=== PATIENT | male | born 1955 | race Caucasian/White ===

== ENCOUNTER 2020-10-14 10:01 | Inpatient (IN) ==
[2020-10-14 10:30] LABS: Hematocrit 46.8 % (42.0-52.0); Hemoglobin 15.9 gm/dL (13.5-18.0); Mean Cell Volume 99.2 fl (78-100); Mean Corpuscular Hemoglobin 33.7 pg (27-31); Mean Platelet Volume 8.5 fl (8-11.3); Platelet Count 278 K/mm3 (150-450); Red Blood Count 4.72 M/mm3 (4.7-6.0); Red Cell Distribution Width 12.9 % (11.5-14.0)
[2020-10-14 10:35] LABS: Total Cells Counted 100
[2020-10-14] MEDS ORDERED: NORMAL SALINE 1,000 ML IV ONE ×2 (10:39→11:45)
[2020-10-14] MEDS ORDERED: MORPHINE SULFATE 4 MG/ML SYRG IV ONE (10:39)
[2020-10-14] MEDS ORDERED: ONDANSETRON HCL/PF 2 MG/ML VIAL IV ONE (10:39)
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
[2020-10-14 10:56] LABS: Albumin * 3.9 gm/dl (3.4-5.0); Anion Gap 15.4 mmol/L (6.8-13.8); BUN/Creatinine Ratio 15.6 (9.0-21.6); Bilirubin, Total 0.6 mg/dL (0.0-1.1); Ca. Corrected For Albumin 9.1 mg/dL (8.4-10.2); Calcium * 9.3 mg/dL (7.9-10.9); Carbon Dioxide 25.8 mmol/L (24-32.6); Potassium 4.2 mmol/L (3.4-4.6); Total Protein 8.3 gm/dL (6.2-8.2)
[2020-10-14 11:17] LABS: Urine Bilirubin Negative (NEGATIVE); Urine Blood Negative /ul (NEGATIVE); Urine Ketone 50 mg/dL (NEGATIVE); Urine Nitrite Negative (NEGATIVE); Urine Protein 30 mg/dL (NEGATIVE); Urine Urobilinogen Normal (NORMAL); Urine pH 6.5 pH (5.0-7.0)
[2020-10-14 11:20] LABS: Atypical (Reactive) Lymph 2 % (0-2); Band 5 % (0-2.0); Eosinophil 1 % (0-3); Lymphocyte 7 % (20-51); Monocyte 2 % (0-9); Neutrophil 83 % (42-75); Neutrophil # 12.5 K/mm3 (1.3-6.0)
[2020-10-14 11:21] LABS: Platelet Estimate Normal (NORMAL); RBC Morphology Normal (NORMAL)
[2020-10-14 11:26] LABS: Urine Appearance Slightly Cloudy (CLEAR); Urine Bacteria TRACE; Urine Color Yellow; Urine Hyaline Cast TRACE /LPF; Urine Mucus Moderate - 2+; Urine RBC TRACE /hpf (0-5); Urine WBC 0-5 /hpf (0-5)
[2020-10-14] MEDS ORDERED: HYDROmorphone HCL 1 MG/ML DISP.SYRIN IV ONE (11:47)
[2020-10-14] MEDS ORDERED: ONDANSETRON HCL/PF 2 MG/ML VIAL IV PRN (12:20)
[2020-10-14] MEDS ORDERED: HYDROmorphone HCL 1 MG/ML DISP.SYRIN IV PRN (12:21)
[2020-10-14] MEDS ORDERED: BENZOCAINE/MENTHOL 16 EACH BOX MM PRN (15:19)
[2020-10-14] MEDS: HYDROmorphone HCL 2 MG/ML VIAL IV PRN ×3 (15:51→23:59)
[2020-10-14] MEDS ORDERED: LORazepam 2 MG/ML DISP.SYRIN IV PRN ×2 (16:44)
[2020-10-14] MEDS: NORMAL SALINE 1,000 ML IV PRN (17:01)
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
[2020-10-14] MEDS: ENOXAPARIN SODIUM 40 MG/0.4 ML SYRG SC SCH (17:21)
[2020-10-14] MEDS: THIAMINE HCL 100 MG TABLET PO SCH (17:21)
[2020-10-14] MEDS: BUDESONIDE 0.5 MG/2 ML VIAL.NEB IH SCH (18:01)
[2020-10-14] MEDS: ALBUTEROL SULFATE 2.5 MG/0.5 ML VIAL.NEB IH PRN (18:01)
[2020-10-14] MEDS ORDERED: LABETALOL HCL 5 MG/ML VIAL IV ONE (19:35)
[2020-10-14] MEDS: cloNIDine 0.1 MG PATCH.TDWK TD SCH (19:50)
[2020-10-15] MEDS: NORMAL SALINE 1,000 ML IV PRN ×3 (01:18→16:38)
[2020-10-15] MEDS: HYDROmorphone HCL 2 MG/ML VIAL IV PRN ×4 (04:07→20:20)
[2020-10-15] MEDS: ALBUTEROL SULFATE 2.5 MG/0.5 ML VIAL.NEB IH PRN ×2 (06:00→17:54)
[2020-10-15] MEDS: BUDESONIDE 0.5 MG/2 ML VIAL.NEB IH SCH ×3 (06:01→18:44)
[2020-10-15] MEDS: cloNIDine 0.1 MG PATCH.TDWK TD SCH (06:12)
[2020-10-15 06:24] LABS: Hemoglobin 14.2 gm/dL (13.5-18.0); Mean Cell Volume 99.8 fl (78-100); Mean Corpuscular Hemoglobin 32.9 pg (27-31); Mean Platelet Volume 8.5 fl (8-11.3); Neutrophil # 13.3 K/mm3 (1.3-6.0); Neutrophil % 81.7 % (42-75.0); Platelet Count 253 K/mm3 (150-450); Red Blood Count 4.31 M/mm3 (4.7-6.0); Red Cell Distribution Width 12.9 % (11.5-14.0); White Blood Count 16.3 K/mm3 (4.0-10.5)
[2020-10-15 06:38] LABS: Albumin * 3.4 gm/dl (3.4-5.0); Anion Gap 11.8 mmol/L (6.8-13.8); BUN/Creatinine Ratio 11.7 (9.0-21.6); Bilirubin, Total 0.7 mg/dL (0.0-1.1); Ca. Corrected For Albumin 8.5 mg/dL (8.4-10.2); Calcium * 8.3 mg/dL (7.9-10.9); Carbon Dioxide 26.3 mmol/L (24-32.6); Potassium 4.1 mmol/L (3.4-4.6); Total Protein 7.3 gm/dL (6.2-8.2)
[2020-10-15] MEDS ORDERED: chlorproMAZINE HCL 10 MG in NORMAL SALINE 50 ML IV PRN (07:09)
--- NOTE | 2020-10-15 07:18 | PN ---
Subjective - Date and Time Seen Date: 10/15/20 Time: 06:20 Subjective Narrative: This patient is a 65-year-old male who came to our Emergency Room yesterday with severe abdominal pain. The pain is upper abdomen. Chest tightness has improved. It started about 5 AM yesterday after using the restroom and lying back down in bed. He says the pain is still constant, but may be a little better than yesterday. He was sweaty and nauseated in the emergency room. He vomited 3 times, but not since admission to the medical surgical floor. He is still nauseated. He just developed hiccoughs which he also had yesterday. His bp and shakiness are better. Workup in the ER was negative for cardiac ischemia. Bloodwork this morning showed a slightly more elevated wbc count. Lipase has substantially improved. CT of the abdomen was consistent with uncomplicated pancreatitis and there were no gallstones or cholecystitis. He had pancreatitis in the past one time, perhaps several years ago. He told the ER doctor he did not drink alcohol. He told the ER nurse he drank a fifth of whiskey per week. He told the floor nurse he drank 4 oz of vodka daily. Floor nurse said his last drink was 3 days ago. Alcohol abuse could possibly explain the pancreatitis, the shakiness and the elevated bp. there is also a history of chronic intractable low back pain chronically on tramadol. Objective - Review of Systems Generalized/Overall Review: Reports: No Symptoms Reported EENTM: Reports: No Symptoms Reported Respiratory: Reports: No Symptoms Reported Cardiac: Reports: No Symptoms Reported Abdominal: Reports: Nausea, Abdominal Pain Genitourinary Symptoms: Reports: No Symptoms Reported Musculoskeletal Complaints: Reports: Back Pain Neurological: Reports: No Symptoms Reported Skin: Reports: No Symptoms Reported Endocrine: Reports: No Symptoms Reported Misc: All systems neg except as marked - Vitals Vitals: Last Vital Signs Temp 36.7 C 10/15/20 06:33 Pulse 95 10/15/20 06:33 Resp 16 10/15/20 06:33 BP 173/88 H 10/15/20 06:33 Pulse Ox 94 10/15/20 06:33 - Abnormal Lab Findings Abnormal Lab Findings: Abnormal Lab Results 10/14/20 10/14/20 10/14/20 Range/Units 10:25 10:25 10:58 WBC 15.0 H (4.0-10.5) K/mm3 RBC (4.7-6.0) M/mm3 MCH 33.7 H (27-31) pg Immature Gran % (Auto) (0.001-0.429) % Immature Gran # (Auto) (0.000-0.0310) K/mm3 Neutrophils % (42-75.0) % Neutrophils % (Manual) 83 H (42-75) % Band Neuts % (Manual) 5 H (0-2.0) % Lymphocytes % (20-51) % Lymphocytes % (Manual) 7 L (20-51) % Neutrophils # (1.3-6.0) K/mm3 Neutrophils # (Manual) 12.5 H (1.3-6.0) K/mm3 Lymphocytes # (Manual) 1.1 L (1.5-3.5) k/mm3 Monocytes # (0.0-1.0) k/mm3 Anion Gap 15.4 H (6.8-13.8) mmol/L Random Glucose 207 H (70-110) mg/dL Total Protein 8.3 H (6.2-8.2) gm/dL Amylase 1672 H (25-115) U/L Lipase 10415 H (73-393) U/L Urine Protein 30 H (NEGATIVE) mg/dL Urine Glucose (UA) 250 H (NEGATIVE) mg/dL Urine Mucus Moderate - 2+ H (NONE) 10/15/20 10/15/20 Range/Units 06:10 06:10 WBC 16.3 H (4.0-10.5) K/mm3 RBC 4.31 L (4.7-6.0) M/mm3 MCH 32.9 H (27-31) pg Immature Gran % (Auto) 0.50 H (0.001-0.429) % Immature Gran # (Auto) 0.08 H (0.000-0.0310) K/mm3 Neutrophils % 81.7 H (42-75.0) % Neutrophils % (Manual) (42-75) % Band Neuts % (Manual) (0-2.0) % Lymphocytes % 9.9 L (20-51) % Lymphocytes % (Manual) (20-51) % Neutrophils # 13.3 H (1.3-6.0) K/mm3 Neutrophils # (Manual) (1.3-6.0) K/mm3 Lymphocytes # (Manual) (1.5-3.5) k/mm3 Monocytes # 1.2 H (0.0-1.0) k/mm3 Anion Gap (6.8-13.8) mmol/L Random Glucose (70-110) mg/dL Total Protein (6.2-8.2) gm/dL Amylase (25-115) U/L Lipase 2576 H (73-393) U/L Urine Protein (NEGATIVE) mg/dL Urine Glucose (UA) (NEGATIVE) mg/dL Urine Mucus (NONE) - Exam Constitutional: Present: Alert, Oriented x3, Cooperative, Well developed, No distress ENT Exam: Present: normal ENT inspection, hard of hearing Neck: Absent: lymphadenopathy (R), lymphadenopathy (L), thyromegaly Breasts: Present: Other - male Respiratory: Present: lungs clear, no respiratory distress Cardiovascular/Chest: Present: regular rate, rhythm, no gallop, no JVD, no murmur Abdomen: Present: Normal bowel sounds, soft, no rebound tenderness, no hepatospenomegaly, no masses, tender - diffuse /Rectal: Present: Exam deferred Extremity: Present: normal capillary refill, lower extremity edema Skin Exam: Present: normal color, warm/dry, no cyanosis Lymphatic: Present: no adenopathy Neurologic: Present: normal mood/affect Appearance: Present: appropriate appearance, appropriate insight, neat, no memory impairment Eye contact: Present: cooperative, good eye contact, normal speech Thoughts: Present: normal thought pattern Assessment/Plan - Problems/Diagnosis (1) Pancreatitis Problem: Acute Qualifiers: Chronicity: acute Acute pancreatitis complication: unspecified Narrative: improved. npo. iv fluids. monitor. (2) Elevated BP without diagnosis of hypertension Problem: Acute Narrative: improved. monitor. (3) Shakiness Problem: Acute Narrative: improved. monitor. (4) Alcohol use Problem: Chronic (5) Moderate persistent chronic asthma without complication Problem: Chronic (6) Former smoker Problem: Chronic (7) Chronic low back pain Problem: Chronic Qualifiers: Back pain laterality: midline Sciatica presence: without sciatica Qualified Code(s): M54.5 - Low back pain; G89.29 - Other chronic pain (8) Chronically on opiate therapy Problem: Chronic
[2020-10-15] MEDS: FOLIC ACID 1 MG TABLET PO SCH (08:41)
[2020-10-15] MEDS: THIAMINE HCL 100 MG TABLET PO SCH (08:41)
[2020-10-15] MEDS: LORazepam 2 MG/ML DISP.SYRIN IV PRN ×3 (08:51→22:16)
[2020-10-15] MEDS: ENOXAPARIN SODIUM 40 MG/0.4 ML SYRG SC SCH (16:36)
[2020-10-16] MEDS: LORazepam 2 MG/ML DISP.SYRIN IV PRN ×2 (00:29→08:33)
[2020-10-16] MEDS: NORMAL SALINE 1,000 ML IV PRN ×2 (00:32→07:08)
[2020-10-16] MEDS: BUDESONIDE 0.5 MG/2 ML VIAL.NEB IH SCH ×2 (06:04→18:51)
[2020-10-16] MEDS: ALBUTEROL SULFATE 2.5 MG/0.5 ML VIAL.NEB IH PRN ×2 (06:05→18:50)
[2020-10-16 06:32] LABS: Hematocrit 42.2 % (42.0-52.0); Hemoglobin 14.1 gm/dL (13.5-18.0); Mean Cell Volume 100.2 fl (78-100); Mean Corpuscular Hemoglobin 33.5 pg (27-31); Mean Corpuscular Hgb Conc 33.4 g/dl (32-36); Mean Platelet Volume 8.7 fl (8-11.3); Platelet Count 237 K/mm3 (150-450); Red Blood Count 4.21 M/mm3 (4.7-6.0); Red Cell Distribution Width 12.9 % (11.5-14.0)
[2020-10-16 06:40] LABS: Anion Gap 14.7 mmol/L (6.8-13.8); BUN/Creatinine Ratio 12.5 (9.0-21.6); Calcium * 8.3 mg/dL (7.9-10.9); Carbon Dioxide 23.1 mmol/L (24-32.6); Estimated Creat Clear 102.8; Potassium 3.8 mmol/L (3.4-4.6)
[2020-10-16 06:42] LABS: Total Cells Counted 100
--- NOTE | 2020-10-16 06:49 | PN ---
Subjective - Date and Time Seen Date: 10/16/20 Time: 06:15 Subjective Narrative: This patient is a 65-year-old male who came to our Emergency Room with severe abdominal pain. This morning the pain is almost gone. The chest tightness is gone. Labs have been improving, but today's are still pending. No more nausea. He hasn't been up and walking and has been NPO. He had pancreatitis in the past one time, perhaps several years ago. there is also a history of chronic intractable low back pain chronically on tramadol. unless he worsens, no additional labs. start low fat diet, walk in halls, probably home tomorrow. Objective - Review of Systems Generalized/Overall Review: Reports: No Symptoms Reported EENTM: Reports: No Symptoms Reported Respiratory: Reports: No Symptoms Reported Cardiac: Reports: No Symptoms Reported Abdominal: Reports: Abdominal Pain - mild Genitourinary Symptoms: Reports: No Symptoms Reported Musculoskeletal Complaints: Reports: Back Pain Neurological: Reports: No Symptoms Reported Skin: Reports: No Symptoms Reported Endocrine: Reports: No Symptoms Reported Misc: All systems neg except as marked - Vitals Vitals: Last Vital Signs Temp 36.8 C 10/16/20 01:39 Pulse 85 10/16/20 06:14 Resp 20 10/16/20 06:14 BP 167/85 H 10/16/20 01:39 Pulse Ox 92 L 10/16/20 06:04 - Abnormal Lab Findings Abnormal Lab Findings: Abnormal Lab Results 10/15/20 10/16/20 10/16/20 Range/Units 06:10 06:15 06:15 WBC 16.0 H (4.0-10.5) K/mm3 RBC 4.21 L (4.7-6.0) M/mm3 MCV 100.2 H (78-100) fl MCH 33.5 H (27-31) pg Immature Gran % (Auto) 0.70 H (0.001-0.429) % Immature Gran # (Auto) 0.11 H (0.000-0.0310) K/mm3 Neutrophils % 76.1 H (42-75.0) % Lymphocytes % 12.8 L (20-51) % Monocytes % 9.8 H (0.0-9) % Neutrophils # 12.2 H (1.3-6.0) K/mm3 Monocytes # 1.6 H (0.0-1.0) k/mm3 Carbon Dioxide 23.1 L (24-32.6) mmol/L Anion Gap 14.7 H (6.8-13.8) mmol/L Lipase 2576 H (73-393) U/L - Exam Constitutional: Present: Alert, Oriented x3, Cooperative, No distress ENT Exam: Present: normal ENT inspection, hard of hearing Neck: Absent: lymphadenopathy (R), lymphadenopathy (L), thyromegaly Breasts: Present: Other - male Respiratory: Present: lungs clear, no respiratory distress Cardiovascular/Chest: Present: normal peripheral pulses, regular rate, rhythm, no gallop, no JVD, no murmur Abdomen: Present: Normal bowel sounds, soft, nondistended, no hepatospenomegaly, no masses, tender - minimally diffusely tender /Rectal: Present: Exam deferred Extremity: Present: normal capillary refill Skin Exam: Present: normal color, warm/dry Lymphatic: Present: no adenopathy Neurologic: Present: oriented x 3 Appearance: Present: appropriate appearance, appropriate insight, neat Eye contact: Present: cooperative, good eye contact, normal speech Thoughts: Present: normal thought pattern Assessment/Plan - Problems/Diagnosis (1) Pancreatitis Problem: Acute Qualifiers: Chronicity: acute Acute pancreatitis complication: unspecified Narrative: improved. decrease iv fluid rate. low fat food. walk in halls. if does ok, home tomorrow. (2) Elevated BP without diagnosis of hypertension Problem: Acute Narrative: continue Catapress topical and monitor. (3) Shakiness Problem: Resolved (4) Alcohol use Problem: Chronic (5) Moderate persistent chronic asthma without complication Problem: Chronic (6) Former smoker Problem: Chronic (7) Chronic low back pain Problem: Chronic Qualifiers: Back pain laterality: midline Sciatica presence: without sciatica Qualified Code(s): M54.5 - Low back pain; G89.29 - Other chronic pain (8) Chronically on opiate therapy Problem: Chronic
[2020-10-16 07:32] LABS: Atypical (Reactive) Lymph 3 % (0-2); Lymphocyte 11 % (20-51); Monocyte 12 % (0-9); Neutrophil 74 % (42-75); Neutrophil # 11.8 K/mm3 (1.3-6.0); Platelet Estimate Normal (NORMAL)
[2020-10-16 07:33] LABS: Hypochromia Trace; Microcytosis 1+; Polychromasia Trace
[2020-10-16] MEDS: FOLIC ACID 1 MG TABLET PO SCH (08:22)
[2020-10-16] MEDS: THIAMINE HCL 100 MG TABLET PO SCH (08:22)
[2020-10-16] MEDS ORDERED: cloNIDine 0.1 MG PATCH.TDWK TD SCH (11:15)
--- NOTE | 2020-10-16 11:50 | PN ---
Subjective - Date and Time Seen Date: 10/16/20 Time: 11:47 Objective - Vitals Vitals: Last Vital Signs Temp 36.3 C 10/16/20 10:36 Pulse 87 10/16/20 10:36 Resp 20 10/16/20 10:36 BP 178/94 H 10/16/20 10:36 Pulse Ox 93 10/16/20 10:36 - Abnormal Lab Findings Abnormal Lab Findings: Abnormal Lab Results 10/16/20 10/16/20 Range/Units 06:15 06:15 WBC 16.0 H (4.0-10.5) K/mm3 RBC 4.21 L (4.7-6.0) M/mm3 MCV 100.2 H (78-100) fl MCH 33.5 H (27-31) pg Lymphocytes % (Manual) 11 L (20-51) % Monocytes % (Manual) 12 H (0-9) % Neutrophils # (Manual) 11.8 H (1.3-6.0) K/mm3 Monocytes # (Manual) 1.9 H (0.0-1.0) k/mm3 Atypic/Reactive Lymphs 3 H (0-2) % Carbon Dioxide 23.1 L (24-32.6) mmol/L Anion Gap 14.7 H (6.8-13.8) mmol/L Assessment/Plan - Problems/Diagnosis (1) Pancreatitis Problem: Acute Qualifiers: Chronicity: acute Acute pancreatitis complication: unspecified (2) Elevated BP without diagnosis of hypertension Problem: Acute (3) Shakiness Problem: Resolved (4) Alcohol use Problem: Chronic (5) Moderate persistent chronic asthma without complication Problem: Chronic (6) Former smoker Problem: Chronic (7) Chronic low back pain Problem: Chronic Qualifiers: Back pain laterality: midline Sciatica presence: without sciatica Qualified Code(s): M54.5 - Low back pain; G89.29 - Other chronic pain (8) Chronically on opiate therapy Problem: Chronic (9) Alcohol dependency Problem: Chronic Narrative: how much of a problem this is remains uncertain because there was variable history from him around the time of admission. not verified one way or another by another person who knows him (10) Alcohol withdrawal delirium Problem: Suspected Narrative: see nurses notes. confusion, elevated pulse and bp. being treated with monitoring, fluids and prn ativan (11) Medication adverse effect Problem: Suspected Narrative: dilaudid for pain. his confusion (see nurses notes) earlier in admission may be in part or completely due to the pain medication. it is now a non issue because he no longer needs the pain medication.
[2020-10-16] MEDS: ENOXAPARIN SODIUM 40 MG/0.4 ML SYRG SC SCH (16:16)
[2020-10-17] MEDS: NORMAL SALINE 1,000 ML IV PRN (03:29)
[2020-10-17] MEDS: ALBUTEROL SULFATE 2.5 MG/0.5 ML VIAL.NEB IH PRN (06:05)
[2020-10-17] MEDS: BUDESONIDE 0.5 MG/2 ML VIAL.NEB IH SCH (06:05)
--- NOTE | 2020-10-17 07:09 | DS ---
(1) Pancreatitis Diagnosis(s): improving. advise no alcohol in any amount. can go home today with office followup. Problem: Acute Qualifiers: Chronicity: acute Acute pancreatitis complication: unspecified (2) Benign essential hypertension Diagnosis(s): it appears that at least for the present he has persistent hypertension. better on catapress. will continue that as an outpatient. Problem: Chronic (3) Elevated BP without diagnosis of hypertension Problem: Resolved (4) Shakiness Problem: Resolved (5) Alcohol use Problem: Chronic (6) Moderate persistent chronic asthma without complication Problem: Chronic (7) Former smoker Problem: Chronic (8) Chronic low back pain Problem: Chronic Qualifiers: Back pain laterality: midline Sciatica presence: without sciatica Qualified Code(s): M54.5 - Low back pain; G89.29 - Other chronic pain (9) Chronically on opiate therapy Diagnosis(s): chronic intractable low back pain. will reassess the need for his chronic tramadol use at his followup office visit. Problem: Chronic (10) Alcohol dependency Problem: Chronic (11) Alcohol withdrawal delirium Problem: Resolved (12) Medication adverse effect Diagnosis(s): dilaudid. it could have just as easily been acute alcohol withdrawal and have nothing to do with the dilaudid. Problem: Resolved Date of Discharge:: 10/17/20 Hospital Course: treated conservatively with NPO, IV fluids and medicine for pain and nausea. he is able to get to the bathroom without difficulty. he is eating. he is not nauseated. his pain is minimal. his bp is better on catapress. early in his stay he developed tachycardia and confusion which may have been due to alcohol withdrawal. he was also tremulous. that has all resolved. his lipase was almost normal yesterday. he is much better and may go home with outpatient followup. Procedures Performed: none Results and Findings: Lab Pending Results 10/14/20 10:20: Troponin I Less than 0.017 10/14/20 10:25: WBC 15.0 H, RBC 4.72, Hgb 15.9, Hct 46.8, MCV 99.2, MCH 33.7 H, MCHC 34.0, RDW 12.9, Plt Count 278, MPV 8.5, Neutrophils % (Manual) 83 H, Band Neuts % (Manual) 5 H, Lymphocytes % (Manual) 7 L, Monocytes % (Manual) 2, Eosinophils % (Manual) 1, Neutrophils # (Manual) 12.5 H, Lymphocytes # (Manual) 1.1 L, Monocytes # (Manual) 0.3, Eosinophils # (Manual) 0.2, Atypic/Reactive Lymphs 2, Platelet Estimate Normal, RBC Morphology Normal 10/14/20 10:25: Sodium 136, Plasma Sodium 138, Potassium 4.2, Chloride 99, Carbon Dioxide 25.8, Anion Gap 15.4 H, BUN 15, Creatinine 0.96, Est GFR (Non-Af Amer) 83, BUN/Creatinine Ratio 15.6, Random Glucose 207 H, Calcium 9.3, Calcium Adj for Albumin 9.1, Total Bilirubin 0.6, AST 41, ALT 66, Alkaline Phosphatase 69, Total Protein 8.3 H, Albumin 3.9, Amylase 1672 H, Lipase 21688 H 10/14/20 10:58: Urine Color Yellow, Urine Appearance Slightly cloudy, Urine pH 6.5, Ur Specific Warren 1.020, Urine Protein 30 H, Urine Glucose (UA) 250 H, Urine Ketones 50, Urine Blood Negative, Urine Nitrate Negative, Urine Bilirubin Negative, Urine Urobilinogen Normal, Ur Leukocyte Esterase Negative, Urine RBC Trace, Urine WBC 0-5, Ur Epithelial Cells Trace, Urine Bacteria Trace, Hyaline Casts Trace, Urine Mucus Moderate - 2+ H, Urine Culture Comments No culture indicated 10/14/20 12:28: SARS-CoV-2 (PCR) Not detected 10/15/20 06:10: Sodium 134, Plasma Sodium 134, Potassium 4.1, Chloride 100, Carbon Dioxide 26.3, Anion Gap 11.8, BUN 9, Creatinine 0.77, Est GFR (Non-Af Amer) 107 D, BUN/Creatinine Ratio 11.7, Random Glucose 104 D, Calcium 8.3, Calcium Adj for Albumin 8.5, Total Bilirubin 0.7, AST 30, ALT 51, Alkaline Phosp hatase 54, Total Protein 7.3, Albumin 3.4, Lipase 2576 H 10/15/20 06:10: WBC 16.3 H, RBC 4.31 L, Hgb 14.2, Hct 43.0, MCV 99.8, MCH 32.9 H, MCHC 33.0, RDW 12.9, Plt Count 253, MPV 8.5, Immature Gran % (Auto) 0.50 H, Immature Gran # (Auto) 0.08 H, Neutrophils % 81.7 H, Lymphocytes % 9.9 L, Monocytes % 7.5, Eosinophils % 0.2, Basophils % 0.2, Nucleated RBC % 0.0, Neutrophils # 13.3 H, Lymphocytes # 1.62, Monocytes # 1.2 H, Eosinophils # 0.0, Absolute Basophils 0.0 10/16/20 06:15: WBC 16.0 H, RBC 4.21 L, Hgb 14.1, Hct 42.2, MCV 100.2 H, MCH 33.5 H, MCHC 33.4, RDW 12.9, Plt Count 237, MPV 8.7, Immature Gran % (Auto) Audio/Video Technician, Immature Gran # (Auto) Audio/Video Technician, Neutrophils % Audio/Video Technician, Neutrophils % (Manual) 74, Lymphocytes % Audio/Video Technician, Lymphocytes % (Manual) 11 L, Monocytes % Audio/Video Technician, Monocytes % (Manual) 12 H, Eosinophils % Audio/Video Technician, Basophils % Audio/Video Technician, Nucleated RBC % Audio/Video Technician, Neutrophils # Audio/Video Technician, Neutrophils # (Manual) 11.8 H, Lymphocytes # Audio/Video Technician, Lymphocytes # (Manual) 1.8, Monocytes # Audio/Video Technician, Monocytes # (Manual) 1.9 H, Eosinophils # Audio/Video Technician, Absolute Basophils Audio/Video Technician, Atypic/Reactive Lymphs 3 H, Platelet Estimate Normal, Polychromasia Trace, Hypochromasia Trace, Microcytosis 1+ 10/16/20 06:15: Sodium 135, Plasma Sodium 135, Potassium 3.8, Chloride 101, Carbon Dioxide 23.1 L, Anion Gap 14.7 H, BUN 9, Creatinine 0.72, Est GFR (Non-Af Amer) 116, BUN/Creatinine Ratio 12.5, Random Glucose 101, Calcium 8.3, Lipase 360 Discharge Location: Home Disposition: Home self-care Condition: Good Discharge Activity: Activity as tolerated Discharge Diet: Low fat/chol - strictly avoid alcohol of any type in any amount ever. Referrals: Fazal Ceballos MD [Primary Care Provider] - Additional Patient Instructions (free text): call for problems or questions any amount of alcohol increases the chance for another episode of pancreatitis. office appt with Dr. Jeronimo in a week or so. Complete Home Medications List: Complete Home Medication List: acetaminophen 325 mg tablet 325 mg PO Q6H PRN 11/10/18 Nebulizer and Supplies 0 .ROUTE .MEDSUPPLY #1 ea 12/06/19 albuterol sulfate 2.5 mg IH QID PRN #120 ml 09/30/20 budesonide 0.5 mg/2 mL suspension for nebulization 0.5 mg IH BID #60 ml 09/30/20 bupropion HCl 150 mg tablet,12 hr sustained-release 150 mg PO BID #60 ea 09/30/20 finasteride 5 mg tablet 5 mg PO DAILY #30 tab 09/30/20 naloxone 4 mg/actuation nasal spray 4 mg ROMULO Q2M PRN #2 ea 09/30/20 [id number]-[id number] 3.3 mg-3 mg-10 mg-0.5 mg/mL ear drops,susp 1 applic OT BID #10 ml 09/30/20 tamsulosin 0.4 mg capsule 0.4 mg PO DAILY #30 cap 09/30/20 Folic Acid 1 mg PO DAILY #30 tab 10/17/20 Thiamine HCl [Vitamin B-1] 100 mg PO DAILY #30 tab 10/17/20 cloNIDine [Catapres-TTS 1] 0.1 mg TD Q7D #5 patch.tdwk 10/17/20
[2020-10-17] MEDS: THIAMINE HCL 100 MG TABLET PO SCH (10:24)
[2020-10-17] MEDS: FOLIC ACID 1 MG TABLET PO SCH (10:24)
[2020-10-17 10:38] VITALS: BP 139/83
== END 2020-10-17 10:55 | disposition home or self-care (01) | DRG 439 ==
LOC: ER 10:01 → MS 13:55
PROVIDERS: ADMIT Allergy & Immunology; ATTEND Allergy & Immunology